=== PATIENT | male | born 1975 | race Hispanic/Latino ===

== ENCOUNTER 2022-04-20 15:54 | Emergency (ER) | payer OTHER ==
[2022-04-20] MEDS ORDERED: Bacitracin 1 PK ONE (16:52)
[2022-04-20] MEDS ORDERED: Lidocaine 1% (PF) 30 ML VIAL ONE (16:52)
== END 2022-04-20 18:05 | disposition home or self-care (01) ==
LOC: NAV ERS 15:54
DX: S67.196A Crushing injury of right little finger, initial encounter (principal); S61.216A Laceration without foreign body of right little finger without damage to nail, initial encounter; W23.0XXA Caught, crushed, jammed, or pinched between moving objects, initial encounter
CPT/HCPCS: 12002; J2001